=== PATIENT | female | born 1975 | race Caucasian/White ===

== ENCOUNTER → 2016-10-09 | Outpatient (CLI) | payer BC | END | disposition home or self-care (01) | LOC: LAB 11:54 | PROVIDERS: ATTEND Nurse Practitioner Family | DX: R07.9 Chest pain, unspecified (principal) | CPT/HCPCS: 36415; 85379 ==

== ENCOUNTER → 2017-03-02 | Outpatient (CLI) | payer BC ==
--- NOTE | 2017-03-02 13:36 | RAD ---
Neck ultrasound, 03/02/2017: History: Lymphadenopathy Multiple small lymph nodes are seen in the neck bilaterally. The 2 largest nodes on the left both measure approximately 14 x 8 mm. There is a 22 x 8 mm submandibular node on the right. A nearby 17 x 9 mm node is also evident in the right submandibular region. These nodes demonstrate echogenic ariadna. There margins are smooth, although occasionally lobulated. These nodes are considered to be at the upper limits of normal in size. Several other smaller left nodes are also noted bilaterally. IMPRESSION: Borderline bilateral cervical adenopathy. Clinical surveillance is suggested.
== END | disposition home or self-care (01) ==
LOC: US 11:52
PROVIDERS: ATTEND Nurse Practitioner Family
DX: R59.1 Generalized enlarged lymph nodes (principal)
CPT/HCPCS: 76536

== ENCOUNTER → 2017-04-13 | Outpatient (CLI) | payer BC ==
--- NOTE | 2017-04-13 15:23 | RAD ---
Ultrasound of the neck, 04/13/2017: History: Cervical adenopathy Comparison is made to a study from 03/02/2017. Multiple small cervical lymph nodes are present bilaterally. The largest nodes lie in a cluster on the right. The overall size of this lymph node cluster in the longitudinal plane is 9 x 24 mm. On the previous study this cluster measured 8 x 26 mm. Allowing for technical differences there has been no definite interval change. Several other smaller subcentimeter lymph nodes are noted bilaterally. The largest lymph node currently seen on the left measures 6 x 9 mm. On the previous study there was a 14 x 8 mm node in the neck on the left. IMPRESSION: 1. A borderline enlarged right cervical lymph node or lymph node cluster is essentially unchanged since 03/02/2017. 2. A previously seen mildly prominent left cervical lymph node has regressed. 3. No new abnormality is detected. 4. Clinical surveillance is suggested and if clinical suspicion persists, CT scanning would be a more reproducible method of follow-up.
== END | disposition home or self-care (01) ==
LOC: US 14:04
PROVIDERS: ATTEND Nurse Practitioner Family
DX: R59.9 Enlarged lymph nodes, unspecified (principal)
CPT/HCPCS: 76536